=== PATIENT | female | born 1955 | race Caucasian/White ===

== ENCOUNTER 2016-07-24 19:40 | Emergency (ER) | payer MEDICAID, OTHER ==
[~2016-07-24] VITALS: Ht 167.6 cm; Wt 63.5 kg
[~2016-07-24 19:40] MED LIST: CIPR-262 PO; PHEN300C6 PO; RIVA10TA PO
--- NOTE | 2016-07-24 20:00 | NUR ---
PT A/OX4 BREATHING EFFORTLESSLY ON ROOM AIR, PT STATES SHE WAS CLEANING THE PATIO 3 DAYS AGO AND STATES SHE FELL AND LANDED ON HER LEFT HIP, PT C/O LEFT HIP AND LEG PAIN S/P FALL, PT ON MONITOR, IN GOWN MADE AWARE WILL CONTINUE TO MONITOR
--- NOTE | 2016-07-24 22:00 | NUR ---
PT IN BED RELAXING IN NO APPARENT DISTRESS PT ON MONITOR VSS, WILL CONTINUE TO MONITOR.
[2016-07-24] MEDS ORDERED: ONDANSETRON HCL/PF - ER 4 MG/2 ML VIAL IV ONE (22:30)
[2016-07-24] MEDS ORDERED: MORPHINE SULFATE INJ 2 MG/ML DISP.SYRIN IV ONE (22:30)
[2016-07-24] MEDS ORDERED: MORPHINE SULFATE INJ 4 MG/ML DISP.SYRIN ONE (22:33)
[2016-07-24] MEDS ORDERED: ONDANSETRON HCL/PF 4 MG/2 ML VIAL ONE (22:34)
[2016-07-24 23:09] LABS: EOSINOPHILS % (AUTO) 1.2 % (0.0-6.0); HEMOGLOBIN 10.6 g/dL (11.5-14.8); MONOCYTES # (AUTO) 0.4 /CMM (0.1-1.30); PLATELET COUNT (AUTO) 126 /CMM (150-450); WHITE BLOOD COUNT (AUTO) 4.1 K/uL (4.3-11.0)
[2016-07-24 23:17] LABS: BASOPHILS % (AUTO) 1.2 % (0.0-2.0); HEMATOCRIT 31 % (33-45); LYMPHOCYTES # (AUTO) 1.4 /CMM (0.8-4.8); LYMPHOCYTES % (AUTO) 33.9 % (20.0-44.0); MEAN CORPUSCULAR HEMOGLOBIN 37 PG (26.0-33.0); MEAN CORPUSCULAR HGB CONC 34 g/dl (31.0-36.0); MEAN CORPUSCULAR VOLUME 109 fL (82-100); MONOCYTES % (AUTO) 8.8 % (2.0-12.0); NEUTROPHILS # (AUTO) 2.3 /CMM (1.8-8.9); NEUTROPHILS % (AUTO) 54.9 % (43.0-81.0); RDW COEFFICIENT OF VARIATION 14.1 (11.5-15.0); RED BLOOD CELL COUNT(AUTO) 2.86 MIL/uL (4.0-5.2)
[2016-07-24 23:26] LABS: ALBUMIN 2.9 g/dL (3.4-5.0); BILIRUBIN,TOTAL 0.6 mg/dL (0.2-1.0); CALCIUM, SERUM 7.7 mg/dL (8.5-10.1); CREATININE 0.5 mg/dL (0.6-1.3); TOTAL PROTEIN, SERUM 6.6 g/dL (6.4-8.2)
[2016-07-24 23:38] LABS: INR 1.15 (0.87-1.13); PROTHROMBIN TIME 12.4 SECS (9.5-12.7)
--- NOTE | 2016-07-25 00:11 | NUR ---
PAGED AIRLINE PILOT FOR BLANCA GONZALEZ
[2016-07-25] MEDS ORDERED: MORPHINE SULFATE INJ 2 MG/ML DISP.SYRIN ONE (00:23)
[2016-07-25] MEDS ORDERED: MORPHINE SULFATE INJ 4 MG/ML DISP.SYRIN ONE (00:24)
[2016-07-25] MEDS ORDERED: ONDANSETRON HCL/PF 4 MG/2 ML VIAL ONE (00:24)
--- NOTE | 2016-07-25 00:43 | NUR ---
PT WALKED TO THE BATHROOM WITH ASSISTANCE AND STATES SHE IS FEELING BETTER MD MADE AWARE WILL CONTINUE TO MONITOR.
[2016-07-25] MEDS ORDERED: MISCELLANEOUS MED 1 EA EA XX ONE (02:00)
[2016-07-25 02:04] VITALS: BP 126/80
--- NOTE | 2016-07-25 02:05 | NUR ---
Patient discharged to home in stable condition. Written and verbal after care instructions given. Patient verbalizes understanding of instruction.IV removed. Catheter intact and site benign. Pressure and 4x4 applied to site. No bleeding noted.
--- NOTE | 2016-07-25 02:06 | NUR ---
PT GIVEN CANE AND SHOWED HOW TO USE PRORPERLY AND PT RETURNED DEMONSTARTED USE OF CANE, PT WALKED OUT OF THE ER WITH A STEADY GAIT
[2016-07-26] MEDS ORDERED: METRONIDAZOLE 500MG/ NS 100ML 100 ML IV ONE (01:08)
== END 2016-07-25 02:11 | disposition home or self-care (01) ==
LOC: ER 19:43
DX: S72.112A Displaced fracture of greater trochanter of left femur, initial encounter for closed fracture (principal); G40.909 Epilepsy, unspecified, not intractable, without status epilepticus; W18.39XA Other fall on same level, initial encounter; Y93.89 Activity, other specified; Y92.89 Other specified places as the place of occurrence of the external cause; Y99.9 Unspecified external cause status
CPT/HCPCS: 36415; 73503; 73552; 73564; 73700; 80053; 85025; 85730; 96374; 96375; 99285; A4606; J2270 ×3; J2405 ×2; Z7610; 73510-TC; 73550-TC; J3490

== ENCOUNTER 2017-03-22 12:12 | Emergency (ER) | payer OTHER ==
[~2017-03-22] VITALS: Ht 170.2 cm; Wt 58.1 kg
--- NOTE | 2017-03-22 13:00 | NUR ---
WOUND CARE DONE AT BS.
[2017-03-22] MEDS ORDERED: CELLULOSE,OXIDIZED 1 PKT EACH MC STA (13:07)
[2017-03-22] MEDS ORDERED: GELATIN SPONGE,ABSORBABLE 1 SPONGE SPONGE TP ONE (13:08)
--- NOTE | 2017-03-22 15:10 | NUR ---
PT STILL C/O BLEEDING ON SITE. PA AWARE.
[2017-03-22] MEDS ORDERED: LIDOCAINE 1%-EPI 1:100,000 50 ML VIAL IJ STA (15:16)
[2017-03-22] MEDS ORDERED: LIDOCAINE HCL/MPF 1% 30 ML VIAL IJ ONE (15:21)
--- NOTE | 2017-03-22 16:22 | NUR ---
Patient discharged to home in stable condition. Written and verbal after care instructions given. Patient verbalizes understanding of instruction.
[2017-03-22 16:24] VITALS: BP 145/91
== END 2017-03-22 16:24 | disposition home or self-care (01) ==
LOC: ER 12:16
DX: L76.22 Postprocedural hemorrhage of skin and subcutaneous tissue following other procedure (principal); Z98.890 Other specified postprocedural states
CPT/HCPCS: 99284; A4606; A6253; A6402 ×3; A6403; J3490; Z7610

== ENCOUNTER 2017-05-26 14:59 | Emergency (ER) | payer OTHER ==
[~2017-05-26] VITALS: Ht 165.1 cm; Wt 67.1 kg
[2017-05-26] MEDS ORDERED: ETOMIDATE 2 MG/ML VIAL IV ONE (15:03)
[2017-05-26] MEDS ORDERED: SUCCINYLCHOLINE CHLORIDE 20 MG/ML VIAL IV ONE (15:03)
[2017-05-26] MEDS ORDERED: NALOXONE PREFILLED SYRINGE 2 MG/2 ML SYRINGE ONE (15:05)
[2017-05-26 15:23] LABS: BASOPHILS # (AUTO) 0.2 /CMM (0.0-0.2); BASOPHILS % (AUTO) 1.9 % (0.0-2.0); HEMATOCRIT 39 % (33-45); HEMOGLOBIN 13.4 g/dL (11.5-14.8); LYMPHOCYTES # (AUTO) 0.8 /CMM (0.8-4.8); LYMPHOCYTES % (AUTO) 8.5 % (20.0-44.0); MEAN CORPUSCULAR HGB CONC 34 g/dl (31.0-36.0); MEAN CORPUSCULAR VOLUME 98 fL (82-100); MONOCYTES # (AUTO) 0.7 /CMM (0.1-1.30); MONOCYTES % (AUTO) 7.4 % (2.0-12.0); NEUTROPHILS # (AUTO) 7.1 /CMM (1.8-8.9); NEUTROPHILS % (AUTO) 82.2 % (43.0-81.0); PLATELET COUNT (AUTO) 71 /CMM (150-450); RDW COEFFICIENT OF VARIATION 12.5 (11.5-15.0); RED BLOOD CELL COUNT(AUTO) 3.97 MIL/uL (4.0-5.2); WHITE BLOOD COUNT (AUTO) 8.8 K/uL (4.3-11.0)
[2017-05-26] MEDS ORDERED: NALOXONE HCL 0.4 MG/ML AMPUL IV ONE (15:30)
[2017-05-26] MEDS ORDERED: IV NS 0.9% 1,000 ML BAG IV ONE (15:30)
--- NOTE | 2017-05-26 15:30 | NUR ---
BBRA FROM HOME. FOUND ON FLOOR, URESPONSIVE. A/Ox 0. Hx OF SEIZURES. LAST KNOW WELL 2 DAYS AGO. COVERED IN STOOL, CLEANED AND CHANGED TO CLEAN CLOTHES. SIDE RAILS UP. HOB ELEVATED. ER PROVIDER AT BEDSIDE.
[2017-05-26 15:33] LABS: CALCIUM, SERUM 8.8 mg/dL (8.5-10.1); CARBON DIOXIDE 25 mmol/L (21-32); CHLORIDE 104 mmol/L (98-107); CREATININE 0.8 mg/dL (0.6-1.3); GLUCOSE 159 mg/dL (74-106); POTASSIUM 3.3 mmol/L (3.5-5.1); SODIUM SERUM 140 mmol/L (136-145); UREA NITROGEN, BLOOD 38 mg/dL (7-18)
[2017-05-26 15:39] LABS: ACETAMINOPHEN 0 ug/ml (10-30); ALANINE AMINOTRANSFERASE 36 U/L (12-78); ALBUMIN 3.1 g/dL (3.4-5.0); ALCOHOL, BLOOD < 3 mg/dL (0-0); ALKALINE PHOSPHATASE 130 U/L (46-116); ASPARTATE AMINOTRANSFERASE 34 U/L (15-37); BILIRUBIN,DIRECT 0.6 mg/dL (0.0-0.2); BILIRUBIN,TOTAL 1.4 mg/dL (0.2-1.0); SALICYLATE < 2.8 mg/dL (2.8-20.0); TOTAL PROTEIN, SERUM 7.8 g/dL (6.4-8.2)
[2017-05-26 15:40] LABS: TROPONIN I < 0.017 ng/mL (0.00-0.056)
--- NOTE | 2017-05-26 15:45 | NUR ---
TO CT VIA [facility]
--- NOTE | 2017-05-26 16:15 | NUR ---
INTUBATION AT BEDSIDE BY DR CARLISLE ETOMIDATE 100 MG IVP R AC G 20 SUCCINYLCHOLINE 100 IVP R AC G 20 INTUBATED 7.5, 24 AT LIP LINE VENT SETTINGS: 16/600/100%/PEEP 5
[2017-05-26] MEDS ORDERED: DEXAMETHASONE SOD PHOSPHATE 10 MG/ML VIAL ONE (16:19)
--- NOTE | 2017-05-26 16:20 | NUR ---
PROPOFOL STARTED PER PROTOCOL Addendum: 05/26/17 at 1640 by DEIDRE PROPOFOL INCREASED TO 20 MCG/KG Addendum: 05/26/17 at 1658 by DEIDRE PROPOFOL DECREASED TO 10 MCG/KG/MIN
[2017-05-26 16:22] LABS: APPEARANCE,URINE Cloudy (CLEAR); BILIRUBIN,URINE MODERATE (NEGATIVE); BLOOD, URINE Small Ery/uL (NEGATIVE); KETONES,URINE Trace (NEGATIVE); LEUKOCYTE ESTERASE ,URINE Trace (NEGATIVE); NITRITE, URINE Negative (NEGATIVE); PROTEIN,URINE 30 mg/dl (NEGATIVE); UGLUCOSE Negative (NEGATIVE)
[2017-05-26 16:23] LABS: COLOR,URINE Dark Yellow (YELLOW)
[2017-05-26 16:25] LABS: INR 1.06 (0.85-1.15)
[2017-05-26] MEDS ORDERED: PROPOFOL 100 ML ONE (16:25)
[2017-05-26 16:26] LABS: BACTERIA,URINE Many /HPF (None Seen); RBC,URINE 0-3 /HPF (0-2); SQUAMOUS EPITHELIAL CELL,UR Few /HPF (None Seen)
[2017-05-26 16:30] VITALS: BP 133/75
--- NOTE | 2017-05-26 16:39 | NUR ---
CHERRIE LITTLE CALLED PATIENT WILL BE TRANSFERED TO ROOM [id number] PRN CCT [id number] NUMBER TO CALL REPORT
--- NOTE | 2017-05-26 16:41 | NUR ---
DECADRON 10MG IVP R AC G [address] HE VERBAL ORDER 0.9%NACL 1000CC TO LEFT WRIST G [address] HE VERBAL ORDER
--- NOTE | 2017-05-26 16:49 | NUR ---
[facility] [employer] INTERFACE DEVELOPER TANNER CALLED FOR REPORT, HOWEVER SHE DID NOT TAKE REPORTAND STATED "I AM ON A MIDDLE OF SOMETHING AND NEED TO TRANSFER PATIENT, I WILL CALL YOU BACK LATER". WILL CALL HER BACK IN 10 MIN.
--- NOTE | 2017-05-26 17:12 | NUR ---
[facility] ICU CALLED AGAIN , RN TANNER WAS NOT ABLE TO TAKE REPORT FOR SECOND TIME. SHE STATED "I M STILL BUSY, NEED TO TRANSFUSE BLOOD, WILL CALL YOU BACK SOON CAN".
--- NOTE | 2017-05-26 17:15 | NUR ---
PATIENT PICKED UP BY [facility], REPORT GIVEN TO RAFAEL LEWIS
[2017-05-26 17:35] LABS: BAND % (MANUAL) 17 % (0.0-5.0); LYMPHOCYTES % (MANUAL) 19 % (16-48); MONOCYTES % (MANUAL) 9 % (0-11.0); NEUTROPHILS % (MANUAL) 53 (42-76)
[2017-05-26 17:36] LABS: METAMYELOCYTES % 1 % (0-0); MYELOCYTES % 1 % (0-0)
--- NOTE | 2017-05-26 17:37 | NUR ---
REPORT GIVEN TO CHERRIE LITTLE MINE MANAGER TANNER ROOM [id number],
[2017-05-26 18:07] LABS: SERUM AMMONIA 37 umol/L (11-32)
== END 2017-05-26 17:38 | disposition short-term general hospital (02) ==
LOC: ER 15:02
DX: S06.5X9A Traumatic subdural hemorrhage with loss of consciousness of unspecified duration, initial encounter (principal); Z98.890 Other specified postprocedural states; X58.XXXA Exposure to other specified factors, initial encounter; Y93.89 Activity, other specified; Y92.89 Other specified places as the place of occurrence of the external cause; Y99.8 Other external cause status
CPT/HCPCS: 36415; 70450-TC; 71045-TC; 80048-TC; 80076-TC; 80185-TC; 80305; 81000-TC; 82140-TC; 84484-TC; 85025-TC; 85610-TC; 85730-TC; 87086-TC; 87186-TC; A4606; G0480; J0330; J1100; J2310; J3490; J7030; Z7610